=== PATIENT | female | born 1980 | race Caucasian/White ===

== ENCOUNTER 2021-04-30 13:42 | Emergency (ER) | payer BC ==
[2021-04-30 15:01] VITALS: BP 119/81; PULSE 89; RESP 20
[2021-04-30] MEDS ORDERED: ACETAMINOPHEN TAB 500 MG TAB PO STA (16:43)
[2021-04-30 17:13] VITALS: TEMP 99.9
--- NOTE | 2021-04-30 17:23 | XR ---
EXAMINATION TYPE: XR chest 2V DATE OF EXAM: 04/30/2021 COMPARISON: 09/27/2015 HISTORY: Difficulty breathing TECHNIQUE: 2 views FINDINGS: There is some increased pulmonary interstitial density in both lungs. There is no pulmonary consolidation. Heart and mediastinum are normal. There is no pleural effusion. IMPRESSION: There is some mild pulmonary interstitial infiltrate that appears new compared to last ex am. No pulmonary consolidation. Normal heart.
[2021-04-30] MEDS ORDERED: dexAMETHasone 2 MG TAB PO STA (17:27)
--- NOTE | 2021-04-30 17:32 | ED ---
General Adult HPI - General Chief complaint: Recheck/Abnormal Lab/Rx Stated complaint: Covid + Time Seen by Provider: 04/30/21 14:55 Source: patient, RN notes reviewed, old records reviewed Mode of arrival: ambulatory Limitations: no limitations - History of Present Illness Initial comments: Is a 41-year-old female presents emergency department stating that she started having symptoms of COVID on April 18 she was tested on the and she was positive. Patient states she has intermittent fevers last few days but is feeling better. Patient denies any shortness of breath patient denies any chest pain or palpitations. Patient denies any nausea vomiting or diarrhea. Patient states she has been eating a little bit less lately. - Related Data Previous Rx's Medication Instructions Recorded Ibuprofen [Motrin] 600 mg PO Q6HR PRN #20 tab 09/27/15 Orphenadrine [Norflex] 100 mg PO Q12H #10 tablet.er 09/27/15 Dexamethasone [Decadron] 6 mg PO DAILY #7 tablet 04/30/21 Allergies Allergy/AdvReac Type Severity Reaction Status Date / Time No Known Allergies Allergy Verified 04/30/21 14:56 Review of Systems ROS Statement: Those systems with pertinent positive or pertinent negative responses have been documented in the HPI. ROS Other: All systems not noted in ROS Statement are negative. Past Medical History Past Medical History: No Reported History History of Any Multi-Drug Resistant Organisms: None Reported Past Surgical History: No Surgical Hx Reported Past Psychological History: No Psychological Hx Reported Smoking Status: Never smoker Past Alcohol Use History: Occasional Past Drug Use History: None Reported General Exam - General Exam Comments Initial Comments: GENERAL: Patient is well-developed and well-nourished. Patient is nontoxic and well- hydrated and is in mild distress. Oral temp is 99.7 ENT: Neck has full range of motion without eliciting any pain. EYES: The sclera were anicteric and conjunctiva were pink and moist. Extraocular movements were intact and pupils were equal round and reactive to light. Eyelids were unremarkable. PULMONARY: Patient has crackles in the left base. CARDIOVASCULAR: There is a regular rate and rhythm without any murmurs gallops or rubs. SKIN: Skin is clear with no lesions or rashes and otherwise unremarkable. NEUROLOGIC: Patient is alert and oriented x3. Cranial nerves II through XII are grossly intact. Motor and sensory are also intact. Normal speech, volume and content. Symmetrical smile. MUSCULOSKELETAL: Normal extremities with adequate strength and full range of motion. No lower extremity swelling or edema. No calf tenderness. LYMPHATICS: No significant lymphadenopathy is noted PSYCHIATRIC: Normal psychiatric evaluation. Limitations: no limitations Course Vital Signs 04/30/21 04/30/21 04/30/21 14:57 16:01 16:15 Temperature 97.7 F 99.9 F H Pulse Rate 89 Respiratory 20 20 Rate Blood Pressure 119/81 O2 Sat by Pulse 96 Oximetry Medical Decision Making - Medical Decision Making X-ray shows some subtle infiltrates consistent with COVID pneumonia - Lab Data Lab Results 04/30/21 Range/Units 15:16 Coronavirus (PCR) Detected A (Not Detectd) Disposition Clinical Impression: Pneumonia due to COVID-19 virus Disposition: HOME SELF-CARE Condition: Good Instructions (If sedation given, give patient instructions): Coronavirus Disease 2019 (COVID-19) Prescriptions: Dexamethasone [Decadron] 6 mg PO DAILY #7 tablet Is patient prescribed a controlled substance at d/c from ED?: No Referrals: Nonstaff,Physician [Primary Care Provider] - 1-2 days Time of Disposition: 17:31
== END 2021-04-30 19:46 | disposition home or self-care (01) ==
LOC: EC 13:42
DX: U07.1 COVID-19 (principal); J12.82 Pneumonia due to coronavirus disease 2019
CPT/HCPCS: 87635; 71046; 99284; J8540